=== PATIENT | male | born 1995 | race Caucasian/White ===

== ENCOUNTER 2021-07-18 00:26 | Emergency (ER) | payer SELFPAY ==
[~2021-07-18] VITALS: Ht 172.7 cm; Wt 77.0 kg
[2021-07-18 00:32] VITALS: BP 125/82
[2021-07-18] MEDS ORDERED: TETANUS, DIPHTHERIA, PERTUSSIS VAC/PF 0.5ML (>10YR OLD) IM ONE (01:15)
[2021-07-18] MEDS ORDERED: BACITRACIN ZINC OINT UDPKT TOP ONE (01:15)
[2021-07-18] MEDS ORDERED: LIDOCAINE HCL/EPINEPHRINE 1%-EPI 1:100,000 20 ML VIAL INFIL ONE (01:15)
== END 2021-07-18 02:39 | disposition home or self-care (01) ==
LOC: ER 00:26
DX: S81.011A Laceration without foreign body, right knee, initial encounter (principal); W26.0XXA Contact with knife, initial encounter; Y93.89 Activity, other specified; Y92.018 Other place in single-family (private) house as the place of occurrence of the external cause
CPT/HCPCS: 12002; 99282

== ENCOUNTER 2024-02-22 13:46 | Emergency (ER) | payer MEDICAID, OTHER ==
[~2024-02-22] VITALS: Ht 172.7 cm; Wt 85.0 kg
[2024-02-22 13:57] VITALS: BP 129/85; PULSE 96; RESP 18; TEMP 97.9; O2SAT 99
[2024-02-22] MEDS ORDERED: LIDOCAINE HCL/EPINEPHRINE 1%-EPI 1:100,000 50 ML VIAL INFIL ONE (15:45)
[2024-02-22] MEDS: ACETAMINOPHEN 325MG TABLET PO ONE (15:45)
[2024-02-22] MEDS: TETANUS, DIPHTHERIA, PERTUSSIS VAC/PF 0.5ML (>10YR OLD) IM ONE (15:45)
[2024-02-22] MEDS: LIDOCAINE HCL/EPINEPHRINE 1%-EPI 1:100,000 20 ML VIAL INFIL NR (16:46)
== END 2024-02-22 18:05 | disposition home or self-care (01) ==
LOC: ER 13:51
DX: S01.112A Laceration without foreign body of left eyelid and periocular area, initial encounter (principal); R51.9 Headache, unspecified; W13.2XXA Fall from, out of or through roof, initial encounter; Y93.89 Activity, other specified; Y92.89 Other specified places as the place of occurrence of the external cause; Y99.8 Other external cause status
CPT/HCPCS: 99285; 70450; 70486; 72125; 90715; 12013; 90471; J3490

== ENCOUNTER 2024-02-29 10:24 | Emergency (ER) | payer MEDICAID ==
[~2024-02-29] VITALS: Ht 172.7 cm; Wt 78.0 kg
[2024-02-29 10:28] VITALS: O2SAT 98
[2024-02-29 11:03] VITALS: BP 134/87; PULSE 81; RESP 16; TEMP 98.6
== END 2024-02-29 11:05 | disposition home or self-care (01) ==
LOC: ER 10:34
DX: S01.112D Laceration without foreign body of left eyelid and periocular area, subsequent encounter (principal); Z48.02 Encounter for removal of sutures; X58.XXXD Exposure to other specified factors, subsequent encounter
CPT/HCPCS: 99281; Z7610 ×2

== ENCOUNTER 2025-03-26 19:12 | Emergency (ER) | payer MEDICAID ==
[~2025-03-26] VITALS: Ht 167.6 cm; Wt 74.0 kg
[2025-03-26 19:50] VITALS: O2SAT 97
[2025-03-26 23:47] VITALS: BP 142/83; PULSE 91; RESP 18; TEMP 36.6; O2SAT 98
== END 2025-03-26 23:49 | disposition home or self-care (01) ==
LOC: ER 19:14
DX: S61.231A Puncture wound without foreign body of left index finger without damage to nail, initial encounter (principal); X58.XXXA Exposure to other specified factors, initial encounter; Y93.89 Activity, other specified; Y92.89 Other specified places as the place of occurrence of the external cause; Y99.8 Other external cause status
CPT/HCPCS: 99282